=== PATIENT | female | born 1960 | race Caucasian/White ===

== ENCOUNTER → 2017-06-17 | Outpatient (CLI) | payer OTHER ==
[~2017-06-17] MED LIST: DIAZ10TA PO; DULO20 PO; HYDR-3133 PO; MELO7.5T27 PO; MOBI7.5T PO; NO ITAB PO; PROM25TA10 PO; PROM25TA5 PO; TAB-TAB PO; TAMO20TA4 PO; TAMO20TA6 PO
[2017-06-17 09:02] LABS: BILIRUBIN, URINE NEG (NEG); GLUCOSE,URINE NEG (NEG); KETONE, URINE NEG (NEG); NITRITE,URINE NEG (NEG); URINE LEUKOCYTE ESTERASE NEG (NEG)
[2017-06-17 09:09] LABS: BLOOD, URINE TRACE (NEG)
[2017-06-17 09:12] LABS: RBC, URINE 0-3 /hpf (0-3); SQUAMOUS EPITHELIAL CELL URINE 0-5 /hpf (0-5); URINE COLOR YELLOW (YELLW/STRAW); WBC, URINE 0-2 /hpf (0-5)
[2017-06-17 09:59] LABS: HEMATOCRIT 45.3 % (35.0-46.0); HEMOGLOBIN 14.5 GM/DL (11.6-15.3); MEAN CELL VOLUME 96.4 FL (80.0-100.0); MEAN CORPUSCULAR HEMOGLOBIN 30.9 PG (27.0-34.0); MEAN PLATELET VOLUME 9.9 FL (7.0-11.0); PLATELET COUNT 262 TH/MM3 (150-450); RED CELL DISTRIBUTION WIDTH 14.2 % (11.6-17.2); WHITE BLOOD COUNT 7.4 TH/MM3 (4.0-11.0)
[2017-06-17 10:14] LABS: ALBUMIN 3.5 GM/DL (3.4-5.0); BICARBONATE 31.7 MEQ/L (21.0-32.0); CALCIUM 8.5 MG/DL (8.5-10.1); GLUCOSE,RANDOM 86 MG/DL (74-106)
[2017-06-17 10:18] LABS: AST (GOT) 17 U/L (15-37); CREATININE 0.59 MG/DL (0.50-1.00); GLOMERULAR FILTRATION RATE 106 ML/MIN (>89)
[2017-06-17 10:19] LABS: CHLORIDE 105 MEQ/L (98-107); SODIUM (NA) 140 MEQ/L (136-145); TOTAL PROTEIN 6.9 GM/DL (6.4-8.2)
[2017-06-17 10:21] LABS: ALKALINE PHOSPHATASE 69 U/L (45-117); BLOOD UREA NITROGEN 17 MG/DL (7-18)
[2017-06-17 10:22] LABS: ALT (GPT) 20 U/L (10-53)
[2017-06-17 10:32] LABS: TOTAL BILIRUBIN ADULT 0.3 MG/DL (0.2-1.0)
--- NOTE | 2017-06-17 16:03 | EKG ---
Date Performed: 06/17/2017 Time Performed: 09:45:01 PTAGE: 56 years EKG: Sinus rhythm LOW QRS VOLTAGE IN PRECORDIAL LEADS BORDERLINE ECG PREVIOUS TRACING : 06/10/2015 10.42 Since previous tracing, no significant change noted DOCTOR: Solis Maya Interpretating Date/Time 06/17/2017 16:01:48
== END ==
LOC: PHPRE 08:28
PROVIDERS: ATTEND Surgery
DX: Z01.810 Encounter for preprocedural cardiovascular examination (principal); Z01.812 Encounter for preprocedural laboratory examination; R94.31 Abnormal electrocardiogram [ECG] [EKG]
CPT/HCPCS: 36415; 80053; 81001; 85027; 93005

== ENCOUNTER → 2017-06-24 | Day surgery (SDC) | payer OTHER ==
--- NOTE | 2017-06-23 09:24 | MH ---
cc: Marzena RACHEL M.D. DATE OF ADMISSION 06/24/2017 ADMISSION DIAGNOSIS Torn lateral meniscus left knee now for arthroscopy left knee. ADMISSION HISTORY AND PHYSICAL This pleasant 56-year-old female returns today once again having pain and problems with her left knee from a torn lateral meniscus. She is now scheduled for arthroscopy. OTHER PAST HISTORY The patient has a history of: 1. Allergic rhinitis 2. Anxiety 3. Osteoarthritis of the knee 4. Depression CURRENT MEDICATIONS Include: 1. Diazepam 10 mg a day 2. Flonase 3. Carac topical cream 4. Acetaminophen with Codeine PREVIOUS SURGERIES Anterior cruciate reconstruction left knee. REVIEW OF SYSTEMS Noncontributory FAMILY HISTORY Noncontributory SOCIAL HISTORY She does not smoke and drinks alcohol occasionally. ALLERGIES PENICILLIN, SULFA, PROZAC, VICODIN, BUT NOT PERCOCET AND ALSO ASPIRIN PRODUCTS AND IBUPROFEN. PHYSICAL EXAM We find a 56-year female well-developed, well-nourished oriented x3 complaining of pain in the left knee. VITAL SIGNS: Blood pressure 112/78, pulse 80 and regular, respirations 16, temperature 97.8, pulse oximetry 97% on room air. HEENT: Eyes PERRL, EOMI. Ears, nose, mouth clear. NECK: Supple. LUNGS: Clear. HEART: Regular rate. ABDOMEN: Soft. Positive bowel sounds, nontender. EXTREMITIES: Reveals the left knee to be tender on palpation along the lateral joint margin. Neurovascularly intact to her toes. IMPRESSION AT THIS TIME Torn lateral meniscus left knee. PLAN Admission for arthroscopy left knee today. The patient given a prescription for postoperative pain and antinausea pills in the office. MD EVERETT Issa/ANIL /12:55 PM /9:17 AM
[~2017-06-24] VITALS: Ht 162.6 cm; Wt 68.0 kg
[~2017-06-24] MED LIST changes: +BUPIVACAINE HCL PF 0.25% 30 ML VIAL ONE; +CHLORHEXIDINE GLUCONATE 2 % 1 PACK (2 CLOTHS) TOPICAL PRN; +CLINDAMYCIN 900 MG/NS 100 ML IV SCH; +DEXAMETHASONE SOD PHOS 4 MG/ML VIAL IV ONE; +DEXAMETHASONE SOD PHOS 4 MG/ML VIAL ONE; +FAMOTIDINE 20 MG/2 ML VIAL ONE; +LACTATED RINGER'S 1000 ML IV PRN; +LIDOCAINE HCL 1% PF 5 ML SYRINGE OTHER ONE; +METOPROLOL TARTRATE 25 MG TAB PO PRN; +MIDAZOLAM HCL 2 MG/2 ML VIAL ONE; +ONDANSETRON HCL 4 MG/2 ML VIAL IV PUSH ONE; +POVIDONE IODINE 5% (ANTISEPSIS KIT) 4 APPLICATIONS EACH NARE PRN; +PROPOFOL 200 MG/20 ML AMP IV ONE; +SODIUM CHLORID 0.9% 500 ML IV PRN; +ePHEDrine/NS 25 MG/5 ML SYRINGE IV ONE; +fentaNYL CITRATE 250 MCG/5 ML AMP ONE
[2017-06-24 08:05] LABS: PROTHROMBIN TIME - PATIENT 9.8 SEC (9.8-11.6)
[2017-06-24 10:56] VITALS: BP 116/66; PULSE 73; RESP 16; TEMP 98; O2SAT 99
--- NOTE | 2017-06-25 18:48 | MP ---
cc: Marzena RACHEL M.D. DATE OF SURGERY: 06/24/2017. PREOPERATIVE DIAGNOSIS: Torn lateral meniscus, left knee. POSTOPERATIVE DIAGNOSIS: Torn lateral meniscus, left knee plus 50% tear of the anterior cruciate ligament and chondromalacia lateral compartment left knee. OPERATIVE PROCEDURE PERFORMED: Arthroscopy, excision of torn lateral meniscus with ArthroCare shaving of the joint surfaces of the lateral compartment, left knee. SURGEON Marzena Rachel MD. MANAGER LATIN: YANETH Sarah. ANESTHESIA LMA DESCRIPTION OF THE PROCEDURE IN DETAIL: The patient was brought to the operating room and placed on the operating room table in the supine position. After successful induction of general anesthesia, the patient's left leg was prepped and draped in the usual manner. The knee was then placed in a knee vergara and tightened. Arthroscopic examination was then performed by making a stab wound over the proximal superior and medial aspect of the patellofemoral joint for insertion of the inflow cannula and fluid, followed by stab wounds over the medial and lateral joint margins respectively for insertion of the arthroscope, shaver and probe. Arthroscopic examination was then performed which revealed intact medial compartment, intact patellofemoral joint. The anterior cruciate ligament was found to have a 50% tear and was left alone. The lateral compartment was found to have grade 2 to 3 chondromalacic changes and was shaved smooth using the ArthroCare System. A large complex tear of the lateral meniscus was also identified and removed using the ArthroCare Cutter, Shaver and Probe to afford a smooth surface. The wound was irrigated copiously with lactated Ringers solution. Excess fluid was removed and 10 cc of 0.25% Marcaine plain and 2 cc of Decadron was inserted into the knee joint. The skin was approximated with interrupted 3-0 nylon suture. Wet and then dry dressing was applied to the wound followed by Xeroform gauze, sterile dressing and thigh-high Atul wrap. No tourniquet was utilized. The estimated blood loss was 5 cc. Sponge and suture counts were correct. The patient tolerated the procedure well and left the operating room in satisfactory condition. NOTE: YANETH Sarah was present during the entire procedure to include patient positioning and the procedure. The medical necessity of a nurse practitioner / first assist was indicated in this case due to the surgical complexity of the case itself. During the surgical case, the surgical instrument technician was working at the back table while my surgical garment inspector / SCRAP BUNCH MAKER was directly assisting me. J. MD EVERETT Zuniga/JUSTUS /9:45 AM /6:34 PM
== END | disposition home or self-care (01) ==
LOC: PHSDC 06:22 → EDSTATUS 08:45
PROVIDERS: ATTEND Surgery
DX: S83.272A Complex tear of lateral meniscus, current injury, left knee, initial encounter (principal); S83.512A Sprain of anterior cruciate ligament of left knee, initial encounter; M94.262 Chondromalacia, left knee
CPT/HCPCS: 01400; 29881; 85610; 85730; J1100; J2250; J3010; J7120; J2405